=== PATIENT | female | born 1965 | race Caucasian/White ===

== ENCOUNTER 2021-04-11 09:30 | Outpatient (CLI) | payer OTHER ==
[~2021-04-11] VITALS: Ht 154.9 cm; Wt 126.0 kg
[~2021-04-11 09:30] MED LIST: ACETAMINOPHEN TAB 650MG DOSE (2X325MG) PO ONE; ALBUTEROL 90 MCG/ACT 8GM HFA INHALER INH PRN; ALBUTEROL SULFATE 2.5 MG/0.5 ML INH NEB SOLN INH PRN; BAMLANIVIMAB 700 MG, ETESEVIMAB 1,400 MG in NS 250 ML IV ONE; EPINEPHrine INJ 1 MG/ML 1ML AMP IM PRN; NS 1,000 ML IV SCH; diphenhydrAMINE 50MG/ML VIAL (J1200) IV PRN; methylPREDNISolone 125MG 2ML VIAL IV PRN
[2021-04-11 10:00] VITALS: BP 136/63
[2021-04-11 10:30] VITALS: BP 132/56
[2021-04-11 11:00] VITALS: BP 122/60
[2021-04-11 12:00] VITALS: BP 148/72
== END 2021-04-11 12:00 | disposition home or self-care (01) ==
LOC: M OPCLI4PR 09:30
PROVIDERS: ATTEND Family Medicine
DX: U07.1 COVID-19 (principal); Z88.0 Allergy status to penicillin

== ENCOUNTER → 2022-11-27 | Outpatient (CLI) | payer OTHER | LOC: M WHC 09:19 | PROVIDERS: ATTEND Nurse Practitioner Primary Care | DX: Z12.31 Encounter for screening mammogram for malignant neoplasm of breast (principal) ==

== ENCOUNTER → 2023-06-07 | Outpatient (CLI) | payer OTHER | LOC: M WUC 10:05 | PROVIDERS: ATTEND Nurse Practitioner Family | DX: M25.562 Pain in left knee (principal) ==

== ENCOUNTER 2023-10-06 13:49 | Emergency (ER) | payer OTHER ==
[~2023-10-06] VITALS: Ht 154.9 cm; Wt 126.7 kg
[2023-10-06] MEDS ORDERED: SYNT88TA2 PO (14:00)
[2023-10-06] MEDS ORDERED: PIRO20CA2 PO (14:00)
[2023-10-06] MEDS ORDERED: LOSA25TA13 PO (14:00)
[2023-10-06 17:55] VITALS: BP 172/88; TEMP 97.5; O2SAT 99
== END 2023-10-06 18:04 | disposition home or self-care (01) ==
LOC: M ED 13:49
DX: I10 Essential (primary) hypertension (principal); Z88.0 Allergy status to penicillin; Z79.811 Long term (current) use of aromatase inhibitors; Z79.899 Other long term (current) drug therapy

== ENCOUNTER → 2023-12-12 | Outpatient (CLI) | payer OTHER ==
[~2023-12-12] MED LIST changes: -ACETAMINOPHEN TAB 650MG DOSE (2X325MG) PO ONE; -ALBUTEROL 90 MCG/ACT 8GM HFA INHALER INH PRN; -ALBUTEROL SULFATE 2.5 MG/0.5 ML INH NEB SOLN INH PRN; -BAMLANIVIMAB 700 MG, ETESEVIMAB 1,400 MG in NS 250 ML IV ONE; -EPINEPHrine INJ 1 MG/ML 1ML AMP IM PRN; +LOSA25TA13 PO; -NS 1,000 ML IV SCH; +PIRO20CA2 PO; +SYNT88TA2 PO; -diphenhydrAMINE 50MG/ML VIAL (J1200) IV PRN; -methylPREDNISolone 125MG 2ML VIAL IV PRN
== END ==
LOC: M WHC 07:01
PROVIDERS: ATTEND Internal Medicine
DX: Z12.31 Encounter for screening mammogram for malignant neoplasm of breast (principal)

== ENCOUNTER → 2024-12-15 | Outpatient (CLI) | payer OTHER | LOC: M WHC 13:21 | PROVIDERS: ATTEND Internal Medicine | DX: Z12.31 Encounter for screening mammogram for malignant neoplasm of breast (principal); R92.313 Mammographic fatty tissue density, bilateral breasts ==